=== PATIENT | male | born 1975 | race African-American/Black ===

== ENCOUNTER 2019-04-07 10:23 | Emergency (ER) | payer OTHER ==
[~2019-04-07] VITALS: Ht 175.3 cm; Wt 108.9 kg
[2019-04-07 11:44] LABS: URINE BILIRUBIN NEGATIVE (Negative); URINE BLOOD NEGATIVE (Negative); URINE CLARITY TURBID; URINE COLOR YELLOW; URINE GLUCOSE-RANDOM* NEGATIVE (Negative); URINE KETONES NEGATIVE (Negative); URINE LEUKOCYTES-REFLEX NEGATIVE (Negative); URINE NITRITE-REFLEX NEGATIVE (Negative); URINE PROTEIN (DIPSTICK) 1+ (Negative); URINE SPECIFIC GRAVITY >= 1.030 (1.005-1.035); URINE UROBILINOGEN 0.2 E.U./dl (0.2-1.0)
[2019-04-07 11:53] LABS: AMORPHOUS URATES Many /LPF (None Seen); BACTERIA-REFLEX None Seen /HPF (None Seen); CASTS None Seen /LPF (None Seen); SQUAMOUS None Seen /LPF (0-3); URINE RBC 3-10 Few /HPF (0-2); URINE WBC-REFLEX 0-5 Rare /HPF (0-5)
[2019-04-07 11:57] LABS: ABSOLUTE NEUTROPHILS 7.3 thou/uL (1.4-8.2); BASOPHILS 0.2 % (0.0-2.0); EOSINOPHILS 0.4 % (0.0-3.0); HEMATOCRIT 43.5 % (42.0-52.0); HEMOGLOBIN 14.3 gm/dL (14.0-18.0); MCH 29.7 pg (26.0-34.0); MCHC 32.9 g/dL (28.0-37.0); MCV 90.2 fL (80.0-100.0); MONOCYTES 7.3 % (1.0-8.0); PLATELET COUNT 336 thou/uL (150-400); POLYS 71.1 % (36.0-66.0); RBC 4.82 mil/uL (4.50-6.00); RDW 13.7 % (10.5-14.5); WBC 10.2 thou/uL (4.0-11.0)
[2019-04-07 12:11] LABS: ANION GAP 8 mmol/L (7-16); BUN 12 mg/dL (7-18); CALCIUM 9.3 mg/dL (8.5-10.1); CHLORIDE 101 mmol/L (98-107); CO2 27 mmol/L (21-32); GLUCOSE 127 mg/dL (74-106); POTASSIUM 3.6 mmol/L (3.5-5.1); SODIUM 136 mmol/L (136-145)
[2019-04-07 12:15] LABS: DIRECT BILIRUBIN < 0.1 mg/dL (<0.1-0.3); SGOT 17 U/L (15-37); SGPT 24 U/L (30-65); TOTAL BILIRUBIN 0.4 mg/dL (<0.1-1.0); TOTAL PROTEIN 8.2 g/dL (6.4-8.2)
[2019-04-07 12:18] LABS: AMP/METHAMP Negative (Negative); BARBITURATES Negative (Negative); BENZODIAZEPINES Negative (Negative); COCAINE Negative (Negative); METHADONE Negative (Negative); OPIATES Negative (Negative); PCP POSITIVE (Negative)
[2019-04-07 12:22] LABS: SALICYLATE < 2.8 mg/dL (2.8-20.0); TROPONIN-I <0.06 ng/mL (<0.06)
[2019-04-08 04:15] VITALS: BP 143/80
--- NOTE | 2019-04-08 09:21 | EKG ---
[address] [place] [address] ELECTROCARDIOGRAM REPORT Name: INDU CHERY Room #: DEP [place]#: [id number] Admission: 04/07/19 Attend Phys: Discharge: 04/08/19 Date of : 79 Report #: [id number] THIS REPORT FOR: //name// [facility] ED Test Date: 2019-04-07 Test Time: 10:29:53 Pat Name: INDU CHERY Department: Room: Gender: [employer]: GIFTY : 1975 Requested By: Godwin Aguirre Order Number: [id number] MD: Wil Lockwood Measurements Intervals [place] Rate: 79 P: 53 NC: 169 QRS: 40 QRSD: 95 T: 7 QT: 385 QTc: 442 Interpretive Statements Sinus rhythm Ventricular premature complex Abnormal R-wave progression, early transition No previous ECG available for comparison Electronically Signed On 04-08-2019 9:20:48 CDT by Wil Lockwood [email or web address] <ELECTRONICALLY SIGNED> By: Wil Lockwood MD, [facility] 04/08/19 0920 1029 1029 Wil Lockwood MD, FACC /EPI
== END 2019-04-08 04:16 | disposition home or self-care (01) ==
LOC: ER 10:23
PROVIDERS: Emergency Medicine
DX: F16.10 Hallucinogen abuse, uncomplicated (principal)